=== PATIENT | female | born 2000 | race Caucasian/White ===

== ENCOUNTER 2025-02-02 11:14 | Outpatient (REF) | payer OTHER, SELFPAY ==
--- OUTSIDE RECORDS SUMMARY | 2025-02-02 12:51 | XMS_ITS | Encounter Summary ---
Author Organization [facility] Address [address] [place] [address] Phone Care Team Providers Care Wardrobe Specialist Name Role Phone Provider, Chuy MOSCOSO Primary Care Provider Encounter Details Date Type Department Care Team (Late st Contact Info) Description 11/12/2016 Documentation [facility] [place] Family Medicine [address] [place], [place] [id number] Family Medicine, Physician [address] [place], [place] [address] Social History Tobacco Use Types Packs/Day Years Used Date Smoking Tobacco: Never Comments:Never smoker Comments Unknown Sex and Gender Information Value Date Recorded Sex Assigned at Female 11/10/2020 8:55 AM EDT Legal Sex Female 5:23 PM EDT Gender Identity Female 11/10/2020 8:55 AM EDT Sexual Orientation Straight 11/10/2020 8: 55 AM EDT documented as of this encounter Plan of Treatment Not on file documented as of this encounter Visit Diagnoses Not on filedocumented in this encounter Care Teams Wardrobe Specialist Relationship Specialty Start Date End Date Provider, MD Chuy [address] [place] [phone] PCP - General Pediatrics 10/03/21 12/09/22 documented as of this encounter
--- OUTSIDE RECORDS SUMMARY | 2025-02-02 12:51 | XMS_ITS | Clinical Summary ---
Author Organization [facility] [address] [place] [address] Address [address] [place] [address] Phone Care Team Providers Care Oil Well Cable Tool Operator Name Role Phone Iván Vail MD Primary Care Pr ovider Medications insulin lispro 100 unit/mL injection Inject as directed. Active insulin pump cart,auto,BT/cn tr (OMNIPOD 5 G6 INTRO KIT, GEN 5, SUBQ) by Not Applicable route. 4 Active spironolactone (ALDACTONE) 50 mg tablet Take 1 tablet (50 mg total) by mouth 2 (two) times a day. 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 Iron deficiency 06/09/2024 Assessment & Plan (09/15/2024 4:55 PM EDT): Continue ferrous sulfate BID and colace BID. Orders: Hemoglobin electrophoresis; Future Hyperlipidemia 09/30/2023 Assessment & Plan (09/15/2024 4:55 PM EDT): Continue with and drying supervisor cooking casing follow-up and exercise regimen as well as weight loss efforts Assessment & Plan (03/17/2024 6:09 PM EST): Increase exercise to at least 30 mins a day 5 days a week Orders: Lipid panel with reflex to direct LDL; Future Acne vulgaris 09/25/2023 Assessment & Plan (09/15/2024 4:55 PM EDT): She will continue spironolactone 50 mg twice daily prescribed by [facility]. Has a follow-up appointment tomorrow. Notes medication is not really working. She will discuss this with her clerical secretary Assessment & Plan (03/17/2024 6:09 PM EST): Will discontinue tretinoin which was ineffective. Orders: Ambulatory referral to Dermatology; Future Menorrhagia with regular cycle 09/25/2023 Assessment & Plan (09/15/2024 4:55 PM EDT): has ongoing heavy menstrual bleeding. Has never had a pelvic ultrasound per patient. Currently not on control due to side effects from Nexplanon/copper IUD OCP /in the past Orders: US Pelvis Transvaginal Non OB; Future Obesity (BMI 30.0-34.9) 09/25/2023 Assessment & Plan (09/15/2024 4:55 PM EDT): Continue with and drying supervisor cooking casing follow-up and exercise regimen as well as weight loss efforts Assessment & Plan (03/17/2024 6:09 PM EST): Increase exercise to at least 30 mins a day 5 days a week Follow-up with nutrition next week Orders: Ambulatory referral to Weight Management; Future Type 1 diabetes mellitus wit h microalbuminuria (CMS/HCC V24, CMS/HCC V28) 09/25/2023 Assessment & Plan (09/15/2024 4:55 PM EDT): Continue [facility] endocrinology follow-up. Continue insulin pump Orders: Diabetes Foot Exam Hemoglobin A1c; Future Assessment & Plan (03/17/2024 6:09 PM EST): F/u with endocrinology in April Continue insulin omnipod Schedule diabetic eye exam Orders: Hemoglobin A1c; Future Encounters Date Type Department Care Team Description 01/26/2025 Telephone Adult Medicine [address] [address] Iván Vail MD 01/26/2025 Telephone Adult Medicine [id number] [place] [address] Iván Vail MD from Last 3 Months Immunizations Immunization Administration Dates Next Due DTaP 5 pertussis antigens, D iptheria Tetanus acellular pertussis (Daptacel) 6wks to less than 7yo 10/04/2004,03/15/2002,03/30/2001,01/12,2000 H1N1 All Forms 03/03/2009 HPV, Quadrivalent 06/14/2014,05/17/2013,02/24/20 12 Hepatitis A Pediatric (Havri x; Vaqta) 12mo to less than 19yo 06/22/2015,06/14/2014 Hepatitis B (Wfgbcxn-O-Rnpvg , Recombivax HB-Adult) 19yo and older 06/25/2024 Hepatitis B Pediatric (Enger ix B; Recombivax HB) to less than 20 yo 03/30/2001,2000,2000 HiB PRP-T conjugate (Acthib, Hiberix) 6wks and older 12/21/2001,03/30/2001,01/12/2001,11/10 IPV Inactivated polio (Ipol) 6wks and older 10/04/2004,12/21/2001,01/12/2001,11/10 Influenza Quadravalent, MDCK , 0.5ml, with preservative (Flucelvax) 6mo and older 04/07/2018,06/22/2015 Influenza Quadrivalent, 0.5m l, preservative free (Fluarix; FluLaval; Fluzone) ages 6mo and older (Afluria) 3yo and older 01/25/2017,03/20/2016,03/14/2014,05/03 Influenza Quadrivalent, with preservative (Fluzone; Afluria) 6mo and older 06/22/2015 Influenza Split 01/13/2012,02/15/2011 Influenza trivalent, with pr eservative (Fluzone; Afluria) 6mo and older 04/07/2018,03/20/2016,03/03/2009 MMR, measles mumps and rubel la Live (Priorix; M-M-R II) 12mo and older 06/11/2024,10/17/2023,10/04/2004,09/25 Meningococcal B, Recombinant (Trumenba) 16yo to less than 24yo 11/10/2020,08/27/2018 Meningococcal MCV4P 08/27/2018,02/24/2012 Pneumococcal Conjugate Vacci ne, 7 Valent 09/15/2002,03/30/2001,01/12/2001,11/10 Pneumococcal polysaccharide 23 valent (Pneumovax 23) 2yo and older 07/22/2016 Tdap Tetanus diptheria acell ular pertussis (Boostrix; Adacel) 7yo and older 06/25/2024,02/24/2012 Varicella live (Varivax) 12m o and older 06/11/2024,10/17/2023,10/30/2007,09/25 Surgical History Surgery Date Site/Laterality Comments OTHER SURGICAL HISTORY PROCEDURE: DENIES PREVIOUS SURGERY Medical History Medical History Date Comments Type 1 diabetes (CMS/HCC V24, CMS/HCC V28) DX:Type 1 diabetes (HCC) Family History Medical History Relation Name Comments Other: thyroid cancer Maternal Grandfather Breast cancer Maternal Grandmother Colon cancer Neg Hx Ovarian cancer Neg Hx Relation Name Status Comments Father Alive Maternal Grandfather Alive Maternal Grandmother Mother Alive Paternal Grandfather Paternal Grandmother Social History Tobacco Use Types Packs/Day Years Used Date Smoking Tobacco: Never Smokeless Tobacco: Never Tobacco Cessation:Counseling Given: Not Answered Alcohol Use Standard Drinks/Week Comments Yes 0 (1 standard drink = 0.6 oz pur e alcohol) Housing Instability Answer Date Recorde d Are you worried that in the next 2 months you may not have stable housing? No 03/17/2024 Food Access & Nutrition Answer Date Rec orded Do you have access to a vari ety of food including fruits and vegetables? Yes 03/17/2024 Access to Healthcare Answer Date Record ed Within the last 3 months, ho w many times did you visit the emergency department for your medical care? 0 03/17/2024 Health Literacy Answer Date Recorded How often do you need to hav e someone help you when you read instructions, pamphlets, or other written material from your doctor or pharmacy? Never 03/17/2024 Caregiver: How often do you need to have someone help you when you read instructions, pamphlets, or other written material from your doctor or pharmacy? Not on file 03/17/2024 Financial Risk Answer Date Recorded How hard is it for you to pa y for the very basics like food, housing, medical care, and air conditioning / heating? Not very hard 03/17/2024 Transportation Answer Date Recorded Has the lack of transportati on kept you from meetings, work, or from getting things needed for daily living? No Has the lack of transportati on kept you from medical appointments or from getting medications? No 03/17/2024 Social Isolation Answer Date Recorded How often do you feel lonely or isolated from th ose around you? Never 03/17/2024 Food Risk Answer Date Recorded Within the past 12 months we worried whether our food would run out before we got money to buy more. Never true 03/17/2024 Within the past 12 months th e food we bought just didn't last and we didn't have money to get more. Never true 03/17/2024 Dependent Care Answer Date Recorded Do you need help finding or paying for care for your loved ones. For example, childcare provider or elderly care for an older adult? No 03/17/2024 Education Answer Date Recorded Do you think completing more education or training, like finishing a GED, going to college, or learning a trade, would be helpful for you? N/A 03/17/2024 Employment and Income Answer Date Recor ded During the last four weeks, have you been actively looking for work? No 03/17/2024 Living Situation Answer Date Recorded What is your living situation? Unrecognized valu e 03/17/2024 Comments Unknown Sex and Gender Information Value Date Recorded Sex Assigned at Not on file Legal Sex Female 11:08 AM EDT Gender Identity Not on file Sexual Orientation Not on file Obstetrics History Last Filed Vital Signs Vital Sign Reading Time Taken Comments Blood Pressure 116/73 09/15/2024 4:05 PM EDT Pulse 75 09/15/2024 4:05 PM EDT Temperature 37 C (98.6 F) 09/15/2024 4:05 PM EDT Respiratory Rate 16 09/15/2024 4:05 PM EDT Oxygen Saturation - - Inhaled Oxygen Concentration - - Weight 93.4 kg (206 lb) 09/15/2024 4:05 PM EDT Height 160 cm (5' 3 ) 09/15/2024 4:05 PM EDT Body Mass Index 36.49 09/15/2024 4:05 PM EDT Plan of Treatment Upcoming Encounters Date Type Department Care Team (Late st Contact Info) Description 05/26/2025 8:00 AM EST Office Visit Adult Medicine [address] [address] Nikia Chavez PA [address] [place] [address] Health Maintenance Due Date Last Done Comments Diabetes: Annual Urine Albumin-Creatinine Ratio (uACR) 09/24/2024 09/25/2023 Diabetes: Annual GFR (Glomerular Filtration Rate) 09/24/2024 09/25/2023 Gonorrhea/Chlamydia Screening 09/24/2024 09/25/2023 Social Influencers of Health Screening 03/17/2025 03/17/2024 Diabetes: Blood Sugar Control Test (HGBA1C) 03/18/2025 09/15/2024, 06/07/2024, 09/25/2023, Additional history exists Diabetes: Annual Retina Eye Exam 08/03/2025 08/03/2024 Diabetes: Annual Foot Exam 09/15/2025 09/15/2024 Cervical Cancer Screening: Pap Smear 06/05/2026 06/05/2023 Cholesterol Screening (Lipid Panel) 06/07/2029 06/07/2024, 09/25/2023, 09/25/2023 Pneumococcal Vaccine: Pediatrics (0 to 5 Years) and At-Risk Patients (6 to 49 Years) (2 of 2 - PCV20 or PCV21) 2050 07/22/2016, 09/15/2002, 03/30/2001, Additional history exists RSV Immunization Adult Patients (1 - 1-dose 75+ series) 09/11/2075 HIB Vaccines Completed 12/21/2001, 03/06, 01/12/2001, Additional history exists IPV Vaccines Completed 10/04/2004, 12/03, 01/12/2001, Additional history exists HPV Vaccines Completed 06/14/2014, 05/05, 02/24/2012 Hepatitis A Vaccines Completed 06/22/2015, 06/14/19 15 Influenza Vaccine Discontinued 04/07/2018, , 01/25/2017, Additional history exists Meningococcal ACWY Vaccine Completed 08/27/2018, Meningococcal B Vaccine Completed 11/10/2020, 08/27 HIV Screening Completed 06/07/2024 Hepatitis C Screening Completed 06/07/2024 DTaP,Tdap,and Td Vaccines Discontinued 2024, 02/24/2012, 10/04/2004, Additional history exists COVID-19 Vaccine Discontinued 07/09/2024, , 09/12/2020, Additional history exists MMR Vaccines Completed 07/14/2024, 11/2024, 10/17/2023, Additional history exists Varicella Vaccines Completed 07/14/2024, 0 06/11/2024, 10/17/2023, Additional history exists Hepatitis B Vaccines Completed 07/22/2024, 06/25/2024, 03/30/2001, Additional history exists Depression Screening Completed 09/15/2024 RSV Immunization Patients Under 20 months Aged Out No longer eligible based on patient's age to complete this topic Procedures Procedure Name Priority Date/Time Associated Diagnosis Comments HEMOGLOBIN A1C Routine 09/15/2024 5:04 PM EDT Type 1 diabetes mellitus with microalbuminuria ([facility] V24, [facility] V28) HEPATITIS C ANTIBODY Routine 06/07/2024 9:59 AM EST Screen for STD (sexually transmitted disease) HIV 1, 2 ANTIBODY, P24 ANTIGEN WITH REFLEX TO DIFFERENTIATION Routine 06/07/2024 9:59 AM EST Screen for STD (sexually transmitted disease) LIPID PANEL WITH REFLEX TO DIRECT LDL Routine 06/07/2024 9:59 AM EST Mixed hyperlipidemia HM URINE ALBUMIN CREATININE RATIO Routine 09/25/2023 HM GONORRHEA/CHLAMYDIA SCRREENING Routine 09/25/2023 from Last 3 Months or Most Recently Relevant to Health Maintenance Results * (ABNORMAL) Hemoglobin A1c (09/15/2024 5:04 PM EDT) Pathologist [facility] Hemoglobin A1C 7.8(H) <6.5 % LAB CHEMISTRY METHOD 09/16/2024 9:11 AM EDT [facility] Mean Bld Glu Estim. 177 mg/dL LAB CHEMISTRY METHOD 09/16/2024 9:11 AM EDT [facility] Blood Venous blood specimen / Unknown Venipuncture / Unknown 09/15/2024 5:04 PM EDT 09/15/2024 5:04 PM EDT Iván Vail MD LAB BLOOD ORDERA BLES Final Result [facility] [address] [place] [address], * Hepatitis C antibody (06/07/2024 9:59 AM EST) [facility] Hepatitis C Antibody Negative Negative LAB CHEMISTRY METHOD 06/07/2024 12:59 PM EST [facility] Blood Venous blood specimen / Unknown Venipuncture / Unknown 06/07/2024 9:59 AM EST 06/07/2024 9:59 AM EST Iván Vail MD LAB BLOOD ORDERA BLES Final Result Performing Organization Address [facility]/ZIP Co de Phone Number [facility] [address] [place] [address], [place] [phone] * HIV 1,2 antibody, p24 antigen with reflex to differentiation (06/07/2024 9:59 AM EST) Pathologist [facility] HIV Combo AB/AG Negative Negative LAB CHEMISTRY METHOD 06/07/2024 12:59 PM EST [facility] Blood Venous blood specimen / Unknown Venipuncture / Unknown 06/07/2024 9:59 AM EST 06/07/2024 9:59 AM EST Narrative [facility] - 06/07/2024 12:59 PM EST This assay is a 4th generation assay allowing for earlier detection of HIV infection by detecting the presence of the HIV-1 p24 antigen as well as the traditional antibodies to HIV type 1 (including group O) and type 2. Use of a 4th generation assay is the current CDC recommendation for HIV screening. Iván Vail MD LAB BLOOD ORDERA BLES Final Result Performing Organization Address [facility]/ZIP Co de Phone Number [facility] [address] [place] [address], [place] [phone] * (ABNORMAL) Lipid panel with reflex to direct LDL (06/07/2024 9:59 AM EST) Pathologist [facility] Cholesterol 207(H) 0 - 200 mg/dL LAB CHEMISTRY METHOD 06/07/2024 12:40 PM EST [facility] Triglycerides 91 0 - 150 mg/dL LAB CHEMISTRY METHOD 06/07/2024 12:40 PM EST [facility] HDL 54 >=40 mg/dL LAB CHEMISTRY METHOD 06/07/2024 12:40 PM EST [facility] LDL Calculated 135(H) 0 - 100 mg/dL LAB CHEMISTRY METHOD 06/07/2024 12:40 PM EST [facility] VLDL Cholesterol Jacob 18.2 mg/dL LAB CHEMISTRY METHOD 06/07/2024 12:40 PM [facility] Non HDL Chol. (LDL+VLDL) 153(H) <145 mg/dL LAB CHEMISTRY METHOD 06/07/2024 12:40 PM [facility] Chol/HDL Ratio 3.8 0.0 - 4.4 LAB CHEMISTRY METHOD 06/07/2024 12:40 PM [facility] Blood Venous blood specimen / Unknown Venipuncture / Unknown 06/07/2024 9:59 AM EST 06/07/2024 9:59 AM EST Iván Vail MD LAB BLOOD ORDERA BLES Final Result [facility] [address] [place] [address], * Urine Albumin Creatinine Ratio (09/25/2023) Urine Albumin Creatinine Ratio abstracted Historical Provider HEALTH MAINTENANCE Final Result * Gonorrhea/Chlamydia Screening (09/25/2023) Gonorrhea/Chla mydia Screening abstracted Historical Provider HEALTH MAINTENANCE Final Result from Last 3 Months or Most Recently Relevant to Health Maintenance Insurance [employer] Care Teams Oil Well Cable Tool Operator Relationship Specialty Start Date End Date Iván Vail MD [address] [place] [phone] PCP - General 04/08/23
--- OUTSIDE RECORDS SUMMARY | 2025-02-02 12:51 | XMS_ITS | Encounter Summary ---
Author Organization [facility] Address [address] [place] [address] Phone Care Team Providers Care Bench Mechanic Name Role Phone Provider, Chuy MOSCOSO Primary Care Provider [phone] Encounter Details Date Type Department Care Team (Late st Contact Info) Description 08/10/2009 Documentation [facility] Family Medicine [address] [place] [address] Family Medicine, Physician [address] [place] [address] Social History Tobacco Use Types Packs/Day Years Used Date Smoking Tobacco: Never Assessed Comments Unknown Sex and Gender Information Value [...] on filedocumented in this encounter Care Teams Bench Mechanic Relationship Specialty Start Date End Date Provider, MD Chuy [address] [place] [phone] PCP - General Pediatrics 10/03/21 12/09/22 documented as of this encounter
--- OUTSIDE RECORDS SUMMARY | 2025-02-02 12:51 | XMS_ITS | Encounter Summary ---
Author Organization [facility] Address [address] [place] [address] Phone Care Team Providers Care Investigative Reporter Name Role Phone Provider, Chuy MOSCOSO Primary Care Provider [phone] Encounter Details Date Type Department Care Team (Late st Contact Info) Description 11/22/2016 Documentation [facility] [place] Family Medicine [address] [place], [place] [phone] Family Medicine, Physician [address] [place] [place], [place] [phone] Social History Tobacco Use Types Packs/Day Years [...] on filedocumented in this encounter Care Teams Investigative Reporter Relationship Specialty Start Date End Date Provider, MD Chuy [address] [place] [phone] PCP - General Pediatrics 10/03/21 12/09/22 documented as of this encounter
--- OUTSIDE RECORDS SUMMARY | 2025-02-02 12:51 | XMS_ITS | Encounter Summary ---
Author Organization [facility] Address [address] [place] [address] Phone Care Team Providers Care Pet Feeder Name Role Phone Provider, Chuy MOSCOSO Primary Care Provider [phone] Encounter Details Date Type Department Care Team (Late st Contact Info) Description 12/12/2016 Documentation [facility] [place] Family Medicine [address] [place], [place] [phone] Family Medicine, Physician [address] [place], [place] [address] Social History Tobacco Use Types Packs/Day Years [...] on filedocumented in this encounter Care Teams Pet Feeder Relationship Specialty Start Date End Date Provider, MD Chuy [address] [place] [phone] PCP - General Pediatrics 10/03/21 12/09/22 documented as of this encounter
--- OUTSIDE RECORDS SUMMARY | 2025-02-02 12:51 | XMS_ITS | Encounter Summary ---
Author Organization [facility] Address [address] [place] [address] Phone Care Team Providers Care Rouge Sifter And Miller Name Role Phone Provider, Chuy MOSCOSO Primary Care Provider [phone] Encounter Details Date Type Department Care Team (Late st Contact Info) Description 06/25/2013 Documentation [facility] [place] [address] [place] [address] Family Medicine, Physician [address] [place] [address] Social History Tobacco Use Types [...] on filedocumented in this encounter Care Teams Rouge Sifter And Miller Relationship Specialty Start Date End Date Provider, MD Chuy [address] [place] [phone] PCP - General Pediatrics 10/03/21 12/09/22 documented as of this encounter
--- OUTSIDE RECORDS SUMMARY | 2025-02-02 12:51 | XMS_ITS | Encounter Summary ---
Author Organization [facility] Address [address] [place] [address] Phone Care Team Providers Care Tie Bucker Name Role Phone Provider, Chuy MOSCOSO Primary Care Provider [phone] Encounter Details Date Type Department Care Team (Late st Contact Info) Description 05/02/2016 Documentation [facility] [place] Family Medicine [address] [place], [place] [phone] Family Medicine, Physician [address] [place] [address] Social History Tobacco Use Types [...] on filedocumented in this encounter Care Teams Tie Bucker Relationship Specialty Start Date End Date Provider, MD Chuy [address] [place] [phone] PCP - General Pediatrics 10/03/21 12/09/22 documented as of this encounter
--- OUTSIDE RECORDS SUMMARY | 2025-02-02 12:51 | XMS_ITS | Encounter Summary ---
Author Organization [facility] Address [address] [place] [address] Phone Care Team Providers Care Strategic Solutions Consultant Name Role Phone Provider, Chuy MOSCOSO Primary Care Provider [phone] Encounter Details Date Type Department Care Team (Late st Contact Info) Description 11/07/2016 Documentation [facility] [place] Family Medicine [address] [place], [place] [phone] Family Medicine, Physician [address], [place] [address] Social History Tobacco Use Types Packs/Day Years [...] on filedocumented in this encounter Care Teams Strategic Solutions Consultant Relationship Specialty Start Date End Date Provider, MD Chuy [address] [place] [phone] PCP - General Pediatrics 10/03/21 12/09/22 documented as of this encounter
--- OUTSIDE RECORDS SUMMARY | 2025-02-02 12:51 | XMS_ITS | Encounter Summary ---
Author Organization [facility] Address [address] [place] [address] Phone Care Team Providers Care Eviscerator Name Role Phone Provider, Chuy MOSCOSO Primary Care Provider [phone] Encounter Details Date Type Department Care Team (Late st Contact Info) Description 11/11/2016 [place] [facility] [place] [address] [place], [place] [phone] Family Medicine, Physician [address] [place], [place] [address] Social History Tobacco Use Types Packs/Day Years [...] on filedocumented in this encounter Care Teams Eviscerator Relationship Specialty Start Date End Date Provider, MD Chuy [address] [place] [phone] PCP - General Pediatrics 10/03/21 12/09/22 documented as of this encounter
--- OUTSIDE RECORDS SUMMARY | 2025-02-02 12:51 | XMS_ITS | Encounter Summary ---
Author Organization [facility] Address [address] [place] [address] Phone Care Team Providers Care Abrasive Grader Helper Name Role Phone Provider, Chuy MOSCOSO Primary Care Provider [phone] Encounter Details Date Type Department Care Team (Late st Contact Info) Description 12/07/2015 [place]ation [facility] [place] [address] [place] [address] Family Medicine, Physician [address] [place] [address] Social History Tobacco Use Types [...] on filedocumented in this encounter Care Teams Abrasive Grader Helper Relationship Specialty Start Date End Date Provider, MD Chuy [address] [place] [phone] PCP - General Pediatrics 10/03/21 12/09/22 documented as of this encounter
--- OUTSIDE RECORDS SUMMARY | 2025-02-02 12:51 | XMS_ITS | Encounter Summary ---
Author Organization [facility] Address [address] [place] [address] Phone Care Team Providers Care Intellectual Property Legal Assistant Name Role Phone Provider, Chuy MOSCOSO Primary Care Provider [phone] Encounter Details Date Type Department Care Team (Late st Contact Info) Description 04/03/2011 Documentation [facility] [place] [address] [place] [address] Family Medicine, Physician [address] [place] [address] Social History Tobacco Use Types [...] on filedocumented in this encounter Care Teams Intellectual Property Legal Assistant Relationship Specialty Start Date End Date Provider, MD Chuy [address] [place] [phone] PCP - General Pediatrics 10/03/21 12/09/22 documented as of this encounter
--- OUTSIDE RECORDS SUMMARY | 2025-02-02 12:51 | XMS_ITS | Encounter Summary ---
Author Organization [facility] Address [address] [place] [address] Phone Care Team Providers Care Scientific Programmer Name Role Phone Provider, Chuy MOSCOSO Primary Care Provider [phone] Encounter Details Date Type Department Care Team (Late st Contact Info) Description 01/01/2012 Documentation [facility] [place] Medicine [address] [place] [address] Family Medicine, Physician [address] [place] [address] Social History Tobacco Use Types [...] on filedocumented in this encounter Care Teams Scientific Programmer Relationship Specialty Start Date End Date Provider, MD Chuy [address] [place] [phone] PCP - General Pediatrics 10/03/21 12/09/22 documented as of this encounter
--- OUTSIDE RECORDS SUMMARY | 2025-02-02 12:51 | XMS_ITS | Encounter Summary ---
Author Organization [facility] Address [address] [place] [address] Phone Care Team Providers Care Gold Leaf Laborer Name Role Phone Provider, Chuy MOSCOSO Primary Care Provider [phone] Encounter Details Date Type Department Care Team (Late st Contact Info) Description 08/10/2013 Documentation [facility] [place] Family Medicine [address] [place] [address] Family Medicine, Physician [address] [place] [address] Social History Tobacco Use Types [...] on filedocumented in this encounter Care Teams Gold Leaf Laborer Relationship Specialty Start Date End Date Provider, MD Chuy [address] [place] [phone] PCP - General Pediatrics 10/03/21 12/09/22 documented as of this encounter
--- OUTSIDE RECORDS SUMMARY | 2025-02-02 12:51 | XMS_ITS | Encounter Summary ---
Author Organization [facility] Address [address] [place] [address] Phone Care Team Providers Care Business Reporter Name Role Phone Provider, Chuy MOSCOSO Primary Care Provider [phone] Encounter Details Date Type Department Care Team (Late st Contact Info) Description 08/10/2009 Documentation [facility] Family Medicine [address] [place] [address] Family Medicine, Physician [address] [place] [address] Social History Tobacco Use Types [...] on filedocumented in this encounter Care Teams Business Reporter Relationship Specialty Start Date End Date Provider, MD Chuy [address] [place] [phone] PCP - General Pediatrics 10/03/21 12/09/22 documented as of this encounter
--- OUTSIDE RECORDS SUMMARY | 2025-02-02 12:51 | XMS_ITS | Clinical Summary ---
Author Organization [facility] Address [address] [place] [address] Phone Care Team Providers Care Bread Packer Name Role Phone Unavailable Primary Care Provider Unavailabl e Allergies No known active allergies Medications GLUCAGON EMERGENCY 1 MG injection TYPE 1 DIABETES,USE FOR SEVERE HYPOGLYCEMIA. 3 01/09/2017 Active NOVOLOG FLEXPEN 100 UNIT/ML solution pen-injector USE DIRECTED FOR DIABETES MELLITUS TYPE 1. (MAX DOSE = 60 UNITS/DAY) 90 DAY SUPPLY 2 12/11/2016 Active ELLIE 3-0.02 MG per tablet 0 08/07/2017 Active TRESIBA FLEXTOUCH 100 UNIT/ML solution pen-injector 08/12/2017 Active HUMALOG KWIKPEN 100 UNIT/ML solution pen-injector DIABETES MELLITUS TYPE 1. (MAX DOSE=65 UNITS/DAY) 90 DAY SUPPLY 5 07/19/2018 Active insulin aspart (NOVOLOG) 100 UNIT/ML injection Inject under the skin. 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 Type 1 diabetes mellitus without complication Overview (08/21/2017): followed by endo - HGB 10.5 Assessment & Plan (11/10/2020 9:24 AM EDT): Hgb A1C - 8 Followed by endocrine Has CGM. She did not like using the pump. Assessment & Plan (08/27/2018 11:12 AM EDT): Now with dexcom that helps monitor constant blood sugar, Recent Hgb A2c 8.5. No ER visits or hosp admissions for diabetes in the past year. Assessment & Plan (08/21/2017 10:21 AM EDT): You struggle with control of your diabetes. You see Endocrine quarterly and think that you are doing a better job currently with control of your diabetes. Resolved Problems Problem Noted Date Diagnosed Date Resolved Date Adolescent behavior problem 05/17/2013 08/27/2018 Overview (08/21/2017): Pt in therapy at [facility]. Father more involved than mom. DCF was involved. Assessment & Plan (08/21/2017 8:56 AM EDT): You are in therapy with Linnette from [facility]. Encounter for counseling for care management of patient with chronic conditions and complex health needs using nurse-based model 12/06/2011 11/10/2020 Immunizations Immunization Administration Dates Next Due DTaP 5 10/04/2004, 2,03/30/2001,01/12,2000 H1N1 03/03/2009 HPV, Quadrivalent 06/14/2014,05/17/2013,02/24/20 12 Hep A, ped/adol 06/22/2015,06/14/2014 Hep B, ped/adol 03/30/2001,2000,2000 Hib (PRP-T) 12/21/2001, 1,01/12/2001,11/10 IPV 10/04/2004, 2,01/12/2001,11/10 Influenza Split 01/13/2012,02/15/2011 Influenza, injectable, MDCK, preservative free, quadrivalent 04/07/2018 Influenza, injectable, quadrivalent 06/22/2015 Influenza, injectable, quadr ivalent, preservative free 04/07/2018,01/25/2017,03/20/2016,03/14,05/03/2013 Influenza, injectable, trivalent 04/07/2018,02/04 MMR 10/04/2004,09/25/2001 Meningococcal B Trumenba 11/10/2020,08/27/2018 Meningococcal Conj (Menactra) MCV4P 08/27/2018,1 Pneumococcal Conjugate 09/15/2002,2000,01/12/2001,11/10 Pneumococcal Polysaccharide 07/22/2016 Tdap 02/24/2012 Varicella 10/30/2007,09/25/2001 Family History Medical History Relation Name Comments Asthma Brother Thyroid disease Father Depression Paternal Grandfather Diabetes Paternal Grandfather Diabetes Paternal Grandmother Relation Name Status Comments Brother Alive Brother: Alive and well Father Alive Father: Alive a nd well Maternal Grandfather Materna l grandfather: Cancer, kidney Mother Alive Mother: Alive a nd well Paternal Grandfather Paternal Grandmother Sister Alive Sister: Alive a nd well Social History Tobacco Use Types Packs/Day Years Used Date Smoking Tobacco: Never Smokeless Tobacco: Never Tobacco Cessation:Counseling Given: Yes Comments:Never smoker Alcohol Use Standard Drinks/Week Comments No 0 (1 standard drink = 0.6 oz pur e alcohol) Hunger/Food Answer Date Recorded In the last 12 months, did y ou or your family ever eat less than you felt you should because there wasn't enough money for food? No 11/10/2020 Stable Housing Answer Date Recorded Are you worried that in the next 2 months you may not have stable housing? No 11/10/2020 Transportation Concerns Answer Date Rec orded In the last 12 months, have you or your family ever had to go without healthcare because you didn't have a way to get there? No 11/10/2020 Hazards in Home Answer Date Recorded Think about the place you li ve. Do you have problems with any of the following? Pests (mice or roaches), mold, no/not working smoke detectors, water leaks, no window guards. No 2020 Financing Utilities Answer Date Recorde d In the last 12 months, has t he electric, gas, oil, or water company threatened to shut off your services in your home? No 11/10/2020 Safety at Home Answer Date Recorded Are you or your family worried about feeling saf e in your home? No 11/10/2020 Outside Support Answer Date Recorded Do you feel that you need mo re support from other people or programs to help you care for yourself or your family? No 11/10/2020 Understanding Health Concerns Answer Da te Recorded Do you need help understandi ng your or your child's healthcare needs (diagnosis, medications, plan, etc.)? No 11/10/2020 Financing Health Concerns Answer Date R ecorded In the last 12 months, was t here a time when your child needed to see a doctor or get medications or supplies but could not because of cost? No 11/10/2020 Missing School or Work Answer Date Durga rded Did you or your child miss s chool or work because of a health problem that could have been avoided? No 11/10/2020 Comments No Sex and Gender Information Value Date Recorded Sex Assigned at Female 11/10/2020 8:55 AM EDT Legal Sex Female 5:23 PM EDT Gender Identity Female 11/10/2020 8:55 AM EDT Sexual Orientation Straight 11/10/2020 8: 55 AM EDT Last Filed Vital Signs Vital Sign Reading Time Taken Comments Blood Pressure 114/66 11/10/2020 8:41 AM EDT Pulse 96 11/10/2020 8:41 AM EDT Temperature 36.4 C (97.5 F) 08/27/2018 10:35 AM EDT Respiratory Rate - - Oxygen Saturation - - Inhaled Oxygen Concentration - - Weight 84.2 kg (185 lb 9.6 oz) 11/10/2020 8:41 A M EDT Height 161.3 cm (5' 3.5 ) 11/10/2020 8:41 AM EDT Body Mass Index 32.36 11/10/2020 8:41 AM EDT Plan of Treatment Health Maintenance Due Date Last Done Comments DTaP,Tdap,and Td Vaccines (7 - Td or Tdap) 02/23/2022 02/24/2012, 10/04/2004, 03/15/2002, Additional history exists Influenza Vaccines (#1) 2024 04/07/20 18, 04/07/2018, 04/07/2018, Additional history exists COVID-19 Vaccine (2024-2 6 season) 2025 05/03/2021, 09/12/2020, 08/20/2020 Hepatitis B Vaccines Completed 03/30/2001, 2000, 2000 HIB Vaccines Completed 12/21/2001, 03/06, 01/12/2001, Additional history exists IPV Vaccines Completed 10/04/2004, 12/03, 01/12/2001, Additional history exists MMR Vaccines Completed 10/04/2004, 09/25/2001 Varicella Vaccines Completed 10/30/2007, 09/25/2001 HPV Vaccines Completed 06/14/2014, 05/05, 02/24/2012 Hepatitis A Vaccines Completed 06/22/2015, 06/14/19 15 Pneumococcal Vaccine Completed 07/22/2016, 09/15/2002, 03/30/2001, Additional history exists Meningococcal Vaccine Completed 08/27/2018, 012 Men B Vaccine Completed 11/10/2020, 08/27/2018 Procedures * Due to [place] law, this organization might not be sharing sensitive test results. Procedure Name Priority Date/Time Associated Diagnosis Comments CHLAMYDIA AND GONORRHEA, AMPLIFIED Routine 11/10/2020 9:45 AM EDT Screening examination for bacterial and spirochetal disease from Last 3 Months or Most Recently Relevant to Health Maintenance Results * Due to [place] law, this organization might not be sharing sensitive test results. * Chlamydia and Gonorrhoea, Amplified (11/10/2020 9:45 AM EDT) Chlamydia Trachomatis, DNA Probe NEGATIVE (NEG) [facility] Comment: No Chlamydia Trachomatis RNA detected in this patient's sample (REFERENCE RANGE/NORMAL VALUE: NOT DETECTED) Note: This test uses geospatial image analyst- mediated amplification method to detect rRNA from C. Trachomatis URINE GC AMP PROBE NEGATIVE (NEG) [facility] Comment: No Neisseria Gonorrhoeae RNA detected in this patient's sample (REFERENCE RANGE/NORMAL VALUE: NOT DETECTED) NOTE: This test uses geospatial image analyst-mediated amplification method to detect rRNA from N.Gonorrhoeae. A negative result does not preclude infection. In the case of a negative urine result, testing of an endocervical(female) or urethral (male) specimen is recommended if there is high clinical suspicion of infection. Due to very high sensitivity of Nucleic Acid Amplification Test, false positive results may occur. Therefore, specimen handling is extremely important. In patients in whom the disease is unlikely, additional sample for testing should be considered after an initial positive result. The performance characteristics of this test have not been evaluated in children. The Aptima Combo2 assay is not intended for the evaluation of suspected sexual abuse or for other medico-legal indications. The ordering provider should assess if the patient had consensual sex without risk of sexual abuse. Consult the [facility] if needed. Contact phone number . Therapeutic failure or success cannot be determined with the Aptima Combo2 assay since nucleic acid may persist following appropriate antimicrobial therapy. The Centers for Disease Control and Prevention (CDC) recommends confirmatory retesting using culture or a different nucleic acid amplification test when positive results occur, if indicated. Testing performed or reported by [facility], a Service of [facility], [address], [place] [address] Augie Wolf MD, Pediatric Neuropsychologist Urine 11/10/2020 9:45 AM EDT 11/10/2020 10:26 PM EDT Anupama Odonnell MD LAB MICROBIOLOGY - GENERAL O RDERABLES Final Result [facility] from Last 3 Months or Most Recently Relevant to Health Maintenance
--- OUTSIDE RECORDS SUMMARY | 2025-02-02 12:51 | XMS_ITS | Encounter Summary ---
Author Organization [facility] Address [address] [place] [address] Phone Care Team Providers Care Notary Public Name Role Phone Provider, Chuy MOSCOSO Primary Care Provider [phone] Encounter Details Date Type Department Care Team (Late st Contact Info) Description 09/22/2012 Documentation [facility] [place] Family Medicine [address] [place] [address] Family Medicine, Physician [address] [place] [address] Social History Tobacco Use Types [...] on filedocumented in this encounter Care Teams Notary Public Relationship Specialty Start Date End Date Provider, MD Chuy [address] [place] [phone] PCP - General Pediatrics 10/03/21 12/09/22 documented as of this encounter
--- OUTSIDE RECORDS SUMMARY | 2025-02-02 12:51 | XMS_ITS | Encounter Summary ---
Author Organization [facility] Address [address] [place] [address] Phone Care Team Providers Care Coordinator Integrated Marketing Name Role Phone Provider, Chuy MOSCOSO Primary Care Provider [phone] Encounter Details Date Type Department Care Team (Late st Contact Info) Description 02/16/2013 Documentation [facility] [place] Family Medicine [address] [place], [place] [id number] Family Medicine, Physician [address] [place] [address] Social History Tobacco Use Types [...] on filedocumented in this encounter Care Teams Coordinator Integrated Marketing Relationship Specialty Start Date End Date Provider, MD Chuy [address] [place] [phone] PCP - General Pediatrics 10/03/21 12/09/22 documented as of this encounter
--- OUTSIDE RECORDS SUMMARY | 2025-02-02 12:51 | XMS_ITS | Encounter Summary ---
Author Organization [facility] Address [address] [place] [address] Phone Care Team Providers Care Gristmill Operator Name Role Phone Provider, Chuy MOSCOSO Primary Care Provider [phone] Encounter Details Date Type Department Care Team (Late st Contact Info) Description 12/10/2013 [place] [facility] [place] [address] [place] [address] Family Medicine, Physician [address] [place] [address] Social History Tobacco Use Types [...] on filedocumented in this encounter Care Teams Gristmill Operator Relationship Specialty Start Date End Date Provider, MD Chuy [address] [place] [phone] PCP - General Pediatrics 10/03/21 12/09/22 documented as of this encounter
--- OUTSIDE RECORDS SUMMARY | 2025-02-02 12:51 | XMS_ITS | Clinical Summary ---
Author Organization [facility] Address [address] [place] [address] Care Team Providers Care Ladle Liner Name Role Phone Jessica Robert MD Unavailable [phone] Source Comments Please note that some or all of the patient's information could have additional privacy protections. State laws allow health care providers to render certain types of treatment to minors without parental consent. Please do not assume that this information can be shared solely by obtaining just the consent of the patient's parent/guardian. Please determine if all or part of the patient's care was rendered without parent/guardian involvement. And, if so, obtain the minor's consent prior to disclosure.[facility] Allergies No known active allergies Medications insulin aspart (NOVOLOG) 100 unit/mL injectionIndica tions:type 1 diabetes mellitus Inject into the skin Insulin pump Active Active Problems Problem Noted Date Diagnosed Date Ketoacidosis 11/26/2013 Diabetic ketoacidosis without coma 11/26/2013 Moderate dehydration 11/26/2013 Social History Tobacco Use Types Packs/Day Years Used Date Smoking Tobacco: Never Assessed Other Needs Answer Date Recorded Anything else about your child you'd like help w ith? Not on file 01/17/2023 Share good news about positive changes: Not on f ile 01/17/2023 Comments Unknown Sex and Gender Information Value Date Recorded Sex Assigned at Not on file Legal Sex Female 5:11 PM EDT Gender Identity Not on file Sexual Orientation Not on file Last Filed Vital Signs Vital Sign Reading Time Taken Comments Blood Pressure 116/46 11/27/2013 8:00 AM EDT Pulse 88 11/27/2013 8:00 AM EDT Temperature 36.6 C (97.9 F) 11/27/2013 8:00 AM EDT Respiratory Rate 14 11/27/2013 8:00 AM EDT Oxygen Saturation 99% 11/27/2013 8:00 AM EDT Inhaled Oxygen Concentration - - Weight 53.5 kg (117 lb 15.1 oz) 11/26/2013 7:35 PM EDT Height 157.5 cm (5' 2 ) 11/26/2013 7:35 PM EDT Body Mass Index 21.57 11/26/2013 7:35 PM EDT Plan of Treatment Health Maintenance Due Date Last Done Comments DTaP/TDAP/TD VACCINES (1 - Tdap) 09/11/2007 ADOLESCENT HIV SCREENING 2013 COVID-19 Vaccine (2023-2 5 season) 2025 INFLUENZA (#1) 2025 NIRSEVIMAB VACCINES UNDER 8 MONTHS Aged Out No longer eligible based on patient's age to complete this topic Insurance [employer]IC [employer]CIAL Care Teams Ladle Liner Relationship Specialty Start Date End Date Jessica Robert MD [address] [place] [address] Consulting Physician Pediatric Endocrinology 11/27/13
--- OUTSIDE RECORDS SUMMARY | 2025-02-02 12:51 | XMS_ITS | Encounter Summary ---
Author Organization [facility] Address [address] [place] [address] Phone Care Team Providers Care Certified Ski Patroller Name Role Phone Provider, Chuy MOSCOSO Primary Care Provider [phone] Encounter Details Date Type Department Care Team (Late st Contact Info) Description 09/15/2009 Documentation [facility] Family Medicine [address] [place] [address] Family Medicine, Physician [address] [place] [address] Social History Tobacco Use Types [...] on filedocumented in this encounter Care Teams Certified Ski Patroller Relationship Specialty Start Date End Date Provider, MD Chuy [address] [place] [phone] PCP - General Pediatrics 10/03/21 12/09/22 documented as of this encounter
--- OUTSIDE RECORDS SUMMARY | 2025-02-02 12:51 | XMS_ITS | Encounter Summary ---
Author Organization [facility] Address [address] [place] [address] Phone Care Team Providers Care Gyroscopic Instrument Tester Name Role Phone Provider, Chuy MOSCOSO Primary Care Provider [phone] Encounter Details Date Type Department Care Team (Late st Contact Info) Description 06/22/2013 [place] [facility] [place] [address] [place] [address] Family Medicine, Physician [address] [place] [address] Social History Tobacco Use Types [...] on filedocumented in this encounter Care Teams Gyroscopic Instrument Tester Relationship Specialty Start Date End Date Provider, MD Chuy [address] [place] [phone] PCP - General Pediatrics 10/03/21 12/09/22 documented as of this encounter
--- OUTSIDE RECORDS SUMMARY | 2025-02-02 12:51 | XMS_ITS | Encounter Summary ---
Author Organization [facility] Address [address] [place] [address] Phone Care Team Providers Care Evidence Technician Name Role Phone Provider, Chuy MOSCOSO Primary Care Provider [phone] Encounter Details Date Type Department Care Team (Late st Contact Info) Description 08/09/2016 Documentation [facility] [place] Family Medicine [address] [place], [place] [id number] Family Medicine, Physician [address], [place] [address] Social History Tobacco Use Types Packs/Day Years [...] on filedocumented in this encounter Care Teams Evidence Technician Relationship Specialty Start Date End Date Provider, MD Chuy [address] [place] [phone] PCP - General Pediatrics 10/03/21 12/09/22 documented as of this encounter
--- OUTSIDE RECORDS SUMMARY | 2025-02-02 12:51 | XMS_ITS | Encounter Summary ---
Author Organization [facility] Address [address] [place] [address] Phone Care Team Providers Care Cleaner Carpet And Upholstery Name Role Phone Provider, Chuy MOSCOSO Primary Care Provider [phone] Encounter Details Date Type Department Care Team (Late st Contact Info) Description 12/19/2016 Conversion Encounter [facility] [place] [address] [place], [place] [phone] Social History Tobacco Use Types Packs/Day Years [...] on filedocumented in this encounter Care Teams Cleaner Carpet And Upholstery Relationship Specialty Start Date End Date Provider, MD Chuy [address] [place] [address] PCP - General Pediatrics 10/03/21 12/09/22 documented as of this encounter
--- OUTSIDE RECORDS SUMMARY | 2025-02-02 12:51 | XMS_ITS | Encounter Summary ---
Author Organization [facility] Address [address] [place] [address] Phone Care Team Providers Care Ski Molder Name Role Phone Provider, Chuy MOSCOSO Primary Care Provider [phone] Encounter Details Date Type Department Care Team (Late st Contact Info) Description 11/06/2016 Documentation [facility] [place] Family Medicine [address] [place], [place] [id number] Family Medicine, Physician [address] [place], [place] [address] Social History Tobacco Use Types Packs/Day Years [...] on filedocumented in this encounter Care Teams Ski Molder Relationship Specialty Start Date End Date Provider, MD Chuy [address] [place] [phone] PCP - General Pediatrics 10/03/21 12/09/22 documented as of this encounter
--- OUTSIDE RECORDS SUMMARY | 2025-02-02 12:51 | XMS_ITS | Encounter Summary ---
Author Organization [facility] Address [address] [place] [address] Phone Care Team Providers Care Groundskeeper Porter Name Role Phone Provider, Chuy MOSCOSO Primary Care Provider [phone] Encounter Details Date Type Department Care Team (Late st Contact Info) Description 10/02/2012 Documentation [facility] [place] Family Medicine [address] [place] [address] Family Medicine, Physician [address] [place] [address] Social History Tobacco Use Types [...] on filedocumented in this encounter Care Teams Groundskeeper Porter Relationship Specialty Start Date End Date Provider, MD Chuy [address] [place] [phone] PCP - General Pediatrics 10/03/21 12/09/22 documented as of this encounter
--- OUTSIDE RECORDS SUMMARY | 2025-02-02 12:51 | XMS_ITS | Encounter Summary ---
Author Organization [facility] Address [address] [place] [address] Phone Care Team Providers Care Supervisor Cartography Name Role Phone Provider, Chuy MOSCOSO Primary Care Provider [phone] Encounter Details Date Type Department Care Team (Late st Contact Info) Description 01/25/2010 Documentation [facility] Family Medicine [address] [place] [address] Family Medicine, Physician [address] [place] [address] Social History Tobacco Use Types [...] on filedocumented in this encounter Care Teams Supervisor Cartography Relationship Specialty Start Date End Date Provider, MD Chuy [address] [place] [id number] PCP - General Pediatrics 10/03/21 12/09/22 documented as of this encounter
--- OUTSIDE RECORDS SUMMARY | 2025-02-02 12:51 | XMS_ITS | Clinical Summary ---
Author Organization [facility] Address [address] [place] [address] Care Team Providers Care Oracle Hrms Developer Name Role Phone No, Pcp MD Primary Care Provider Unavailabl e Allergies No known active allergies Medications insulin degludec (TRESIBA FLEXTOUCH U-100) 100 unit/mL (3 mL) See Instructions, INJECT SUBCUTANEOUSLY ONCE DAILY. MAX DAILY DOSE 60 UNITS, # 15 mL, 11 Refills, [facility], 161.5, cm, 07/14/20 13:04:00 EST, Height, 85, kg, 07/14/20 13:04:00 EST, Dry Weight 2 Active HUMALOG KWIKPEN INSULIN 100 unit/mL pen INJECT MAX DOSE OF 65 UNITS/ DAY SUBCUTANEOUSLY E10.9 Active Active Problems No known active problems Family History Medical History Relation Name Comments No known problems Father No known problems Mother Relation Name Status Comments Father Alive Mother Alive Social History Tobacco Use Types Packs/Day Years Used Date Smoking Tobacco: Never Smokeless Tobacco: Never Tobacco Cessation:Counseling Given: Not Answered Alcohol Use Standard Drinks/Week Comments Yes 0 (1 standard drink = 0.6 oz pur e alcohol) 7/week AUDIT-C Answer Date Recorded Q1: How often do you have a drink containing alc ohol? 2-3 times a week 08/10/2023 Average Number of Drinks Not on file 024 Frequency of Binge Drinking Not on file 11/2023 Comments No Sex and Gender Information Value Date Recorded Sex Assigned at Not on file Legal Sex Female 11:19 PM EDT Gender Identity Not on file Sexual Orientation Not on file Last Filed Vital Signs Vital Sign Reading Time Taken Comments Blood Pressure 123/80 08/24/2023 9:50 AM EDT Pulse 89 08/24/2023 9:50 AM EDT Temperature 36.4 C (97.5 F) 08/24/2023 9:50 AM EDT Respiratory Rate 18 08/24/2023 9:50 AM EDT Oxygen Saturation 100% 08/24/2023 9:50 AM EDT Inhaled Oxygen Concentration - - Weight - - Height - - Body Mass Index - - Plan of Treatment Health Maintenance Due Date Last Done Comments CHLAMYDIA SCREENING 2000 HEPATITIS C SCREENING 2017 Cervical Cancer Screening 2021 Pap Smear 2021 DTAP/TDAP/TD VACCINES (7 - Td or Tdap) 02/23/2022 02/24/2012, 10/04/2004, 03/15/2002, Additional history exists INFLUENZA VACCINE (#1) 2024 8, 04/07/2018, 04/07/2018, Additional history exists COVID-19 IMMUNIZATION ( season) 2025 ZOSTER VACCINE (1 of 2) 2050 10/30/2007, 09/25 RSV IMMUNIZATION (1 - 1-dose 75+ series) 09/11/2075 HEPATITIS B VACCINES Completed 03/30/2001, 2000, 2000 HIB VACCINES Completed 12/21/2001, 03/06, 01/12/2001, Additional history exists IPV VACCINES Completed 10/04/2004, 12/03, 01/12/2001, Additional history exists MMR VACCINES Completed 10/04/2004, 09/25/2001 VARICELLA VACCINES Completed 10/30/2007, 09/25/2001 HPV VACCINE Completed 06/14/2014, 05/05, 02/24/2012 HEPATITIS A VACCINES Completed 06/22/2015, 06/14/19 15 PNEUMOCOCCAL VACCINE Aged Out 07/22/2016, 09/15/2002, 03/30/2001, Additional history exists No longer eligible based on patient's age to complete this topic MENINGOCOCCAL ACYW VACCINE Completed 08/27/2018, MENINGOCOCCAL B VACCINE Completed 11/10/2020, 08/27 ROTAVIRUS VACCINES Aged Out No longer eligible based on patient's age to complete this topic Insurance [employer]CIAL [employer]IC COMMERCIAL [employer]IC Advance Directives For more information, please contact: [phone] Documents on File Type Date Recorded Patient Recoil Spring Winder Expl anation Advance Directives and Living Will 10/22/2021 5:26 AM Per Patient no POA/WILL 10/22/2021 EM Care Teams Oracle Hrms Developer Relationship Specialty Start Date End Date No, MD Kim No Address No [place] [id number] PCP - General 10/21/21
--- OUTSIDE RECORDS SUMMARY | 2025-02-02 12:51 | XMS_ITS | Encounter Summary ---
Author Organization [facility] Address [address] [place] [address] Phone Care Team Providers Care Learning Manager Name Role Phone Provider, Chuy MOSCOSO Primary Care Provider [phone] Encounter Details Date Type Department Care Team (Late st Contact Info) Description 05/23/2011 Documentation [facility] Family Medicine [address] [place] [address] Family Medicine, Physician [address] [place] [address] Social History Tobacco Use Types [...] on filedocumented in this encounter Care Teams Learning Manager Relationship Specialty Start Date End Date Provider, MD Chuy [address] [place] [phone] PCP - General Pediatrics 10/03/21 12/09/22 documented as of this encounter
[2025-02-03 05:16] LABS: ~Hepatitis B Surface Antibody REACTIVE (Nonreactive)
== END 2025-02-02 11:15 | disposition home or self-care (01) ==
LOC: HO.10HDL 11:14
PROVIDERS: Visit Provider Internal Medicine
DX: Z02.1 Encounter for pre-employment examination (principal)
CPT/HCPCS: 36415; 86706